=== PATIENT | male | born 1995 | race Caucasian/White ===

== ENCOUNTER 2018-05-17 11:52 | Emergency (ER) | payer SELFPAY ==
[2018-05-17] VITALS (20 sets, daily range): BP systolic 102–117; BP diastolic 55–81; PULSE 51–81; RESP 13–29; TEMP 36.8; O2SAT 97–100
--- NOTE | 2018-05-17 12:00 | DI.REPORT_ITS ---
SYMPTOM/DIAGNOSIS: CHEST PAIN, TRAUMA PORTABLE AP CHEST: Comparison is made with 11/23/17. The heart is normal in size. The lungs are clear. The mediastinal structures and pleura appear intact. CONCLUSION: Normal chest.
[2018-05-17] MEDS: Acetaminophen 325 MG TAB 650 MG PO (12:27)
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
--- NOTE | 2018-05-17 12:41 | DI.VRAD_ITS ---
EXAM: XR Chest, 1 View EXAM DATE/TIME: 05/17/2018 12:01 PM CLINICAL HISTORY: 23 years old, male; Signs and symptoms; Other: Pain, prior acetab FX, no new trauma TECHNIQUE: XR of the chest, 1 view. COMPARISON: CR - CHEST 2 VIEWS PA,LAT 11/23/2017 12:33 PM FINDINGS: Lungs: Unremarkable. No consolidation. Pleural space: Unremarkable. No pleural effusion. No pneumothorax. Heart/Mediastinum: Unremarkable. No cardiomegaly. Bones/joints: Unremarkable for patient's age. IMPRESSION: No acute findings. Dictated and Authenticated by: Phill Emanuel MD. Ordering:ALISSA WEATHERS MD
[2018-05-17] MEDS: Ibuprofen 600 MG TAB PO (13:36)
== END 2018-05-17 13:56 | disposition home or self-care (01) ==
LOC: ER 06-29 03:55
PROVIDERS: Emergency Provider Student in an Organized Health Care Education/Training Program
DX: S20.212A Contusion of left front wall of thorax, initial encounter (principal); S00.81XA Abrasion of other part of head, initial encounter; S70.312A Abrasion, left thigh, initial encounter; V18.0XXA Pedal cycle driver injured in noncollision transport accident in nontraffic accident, initial encounter; Y93.55 Activity, bike riding
CPT/HCPCS: 90471; 93005; 99284; 71045; 93010; 99285

== ENCOUNTER 2018-11-03 15:09 | Emergency (ER) | payer MEDICAID, SELFPAY ==
[2018-11-03 15:17] VITALS: BP 120/60; PULSE 85; RESP 20; TEMP 37.5; O2SAT 96
--- NOTE | 2018-11-03 15:31 | ED.GENADUL_ITS ---
Discharge Plan Disposition Patient Disposition: HOME Condition: Improving Discharge Details Chief Complaint: RespSymp Clinical Impression: Acute bronchitis with bronchospasm Reason For Visit: fever / respiratory Primary Care Provider: None,None ED Provider: Rashaad Cowan Home Meds and New Rx's Prescriptions: New prednisone 20 mg tablet 40 mg PO DAILY 5 Days Qty: 10 RF: 0 azithromycin 250 mg tablet See Rx Instructions .ROUTE .COMPLEX Qty: 6 RF: 0 Continued acetaminophen [Tylenol] 325 mg Tablet 1,000 mg PO PRN PRNRF: 0 Daytime and Nighttime Cold 2-5-10-325 mg Tablets, Sequential PRNRF: 0 Discharge Instructions Instructions: Acute Bronchitis (ED) Additional Instructions: Home to rest today. Continue efforts to decrease smoking. May use albuterol as instructed every 4 hours as needed during times of illness. Return if you feel you have increased shortness of breath or need increase use of the albuterol. Take antibiotics and prednisone as prescribed. Return to the emergency department for any acute concern Stand Alone Forms: Work Release Medical Decision Making 23-year-old male smoker with cough, congestion, wheezing over 3 days time. He is afebrile and well-appearing with normal oxygenation. Does demonstrate bronchospasm on exam. Patient taught albuterol inhaler at bedside with good improvement. I do feel he has bronchitis with bronchospasm and given his smoking history we will treat him with a small burst of steroids, azithromycin to cover atypical pathogens as well as as needed use of his inhaler HPI General Mode of arrival: ambulatory . Date/Time Provider Initiated Documentation: 11/03/18 15:09 . Limitations to Documentation: no limitations . Information obtained by: patient . History of Present Illness described as moderate, Quality is described as aching, dull and constant, and is localized to the chest. Patient reports no radiation. Patient started experiencing this day(s) and it has been constant. No relieving factors improve symptom(s), No exacerbating factors reported . Patient notes no other symptoms.. Patient did receive the following treatments prior to arrival, none Related Data Home Medications Medication Instructions Recorded Confirmed Daytime and Nighttime Cold PRN 11/03/18 acetaminophen [Tylenol] 1,000 mg PO PRN PRN 11/03/18 11/03/18 azithromycin See Rx Instructions .ROUTE 11/03/18 .COMPLEX #6 tab prednisone 40 mg PO DAILY 5 Days #10 tab 11/03/18 Previous Rx's Medication Instructions Recorded azithromycin See Rx Instructions .ROUTE 11/03/18 .COMPLEX #6 tab prednisone 40 mg PO DAILY 5 Days #10 tab 11/03/18 Allergies Allergy/AdvReac Type Severity Reaction Status Date / Time clindamycin Allergy Unknown Skin Rash Unverified 11/03/18 15:22 General Stated Complaint: RespSymp CIELO: 4 Review of Systems Review of Systems 8 systems reviewed and otherwise - [facility] Social History Smoking and Tabacco status: Current every day Exam Narrative Exam Narrative: GEN: awake, alert, oriented 3. Pleasant, well groomed, interactive. HEAD: Normocephalic, atraumatic ENT: Mucous membranes moist, oropharynx unremarkable, External ear exam unremarkable EYES: PERRL, EOMI NECK: Full ROM, no LORNE, no menigismus CHEST/RESP: Nontender, coughing with end expiratory wheeze. No inspiratory wheeze CARDIOVASCULAR: RRR, no murmur, rub adiel. 2+ Rad pulse bilateral ABDOMEN: Soft, nontender, no mass. +Bowel sounds EXT: Full ROM, no edema, no rash Neuro: Grossly normal neurologic exam, conversant, interactive. Psych: Speech fluent, thoughts congruent, affect normal Course Vital Signs Temperature 37.5 C 11/03/18 15:17 Pulse 85 11/03/18 15:17 Respiratory Rate 11/03/18 15:17 Blood Pressure 120/60 11/03/18 15:17 Pulse Oximetry 96 11/03/18 15:17 Temperature 37.5 C 11/03/18 15:17 Temperature Source Temporal Artery Scan 11/03/18 15:17 Pulse 85 11/03/18 15:17 Respiratory Rate 20 11/03/18 15:17 Respiratory Effort 11/03/18 15:21 Blood Pressure 120/60 11/03/18 15:17 Pulse Oximetry 96 11/03/18 15:17 Oxygen Delivery Method Room Air 11/03/18 15:17 Oxygen Flow Rate 0 11/03/18 15:17
[2018-11-03] MEDS: Albuterol HFA 8 GM 60 PUFF INH IH (15:34)
== END 2018-11-03 16:02 | disposition home or self-care (01) ==
PROVIDERS: Emergency Provider Emergency Medicine
DX: R05 Cough (principal); R09.89 Other specified symptoms and signs involving the circulatory and respiratory systems; J20.9 Acute bronchitis, unspecified; F17.210 Nicotine dependence, cigarettes, uncomplicated
CPT/HCPCS: 99283